=== PATIENT | female | born 1975 | race Caucasian/White ===

== ENCOUNTER 2022-10-29 06:56 | Day surgery (SDC) | payer OTHER, SELFPAY ==
[2022-09-03 10:24] VITALS: BMI 20.7
[2022-10-16 14:40] VITALS: BMI 20.3
--- NOTE | 2022-10-26 12:01 | PM.HPGS ---
History of Present Illness History of Present Illness Consent: Risks, benefits, and alternatives have been discussed and questions answered. Patient agrees to proceed with procedure. Chief complaint: Family History of Colon Cancer Narrative: Irlanda Oconnell is a 47 year old female who was referred for colon cancer screening Review of Systems Review of Systems: All systems reviewed & are unremarkable except as noted in HPI and below PMFSH Social History Social History Smoking status: Never smoker Alcohol intake: current Drinks per week: 1 Substance use: never Substance use type: does not use Living arrangements: with family Spiritual care concerns: No Meds Home Medications and Allergies Home Medications Medication Instructions Recorded Confirmed Type No Home Medications 10/16/22 10/29/22 History Allergies Allergy/AdvReac Type Severity Reaction Status Date / Time No Known Allergies Allergy Verified 10/29/22 07:58 Exam Const: General: alert Orientation/consciousness: patient oriented x3 Resp: Auscultation: clear to auscultation bilaterally Cardio: Rate: regular rate Rhythm: regular rhythm GI: GI Palp: Yes Soft to palpation and No Tenderness to palpation present (GI) Neuro: General: patient oriented x3 Assessment and Plan Assessment and plan (1) Colon cancer screening: Code(s): Z12.11 - Encounter for screening for malignant neoplasm of colon Status: Acute Assessment and Plan: Colonoscopy with possible biopsy or polypectomy or cautery or injection of substances.
[2022-10-29 07:50] VITALS: BP 112/74; PULSE 90; RESP 20; TEMP 36.6; O2SAT 100
[2022-10-29] MEDS: LACTATED RINGERS 1,000 ML 150 ML IV CONT (08:01)
--- NOTE | 2022-10-29 08:35 | WPDANESEPPF ---
Anes - Initial Pre Proc Eval Procedure: Operation Date: 10/29/22 09:00 Proposed Procedures p Screening Colonoscopy - Kevyn Harris MD Date/Time: 10/29/22 08:35 Surgeon: Kevyn Harris MD Pre Op Diagnosis: Family History of Colon Cancer Patient Data Age: 47 Gender: F Height: 1.7 m Weight: 60 kg Last Vital Signs Temp 36.6 C 10/29/22 07:50 Pulse 90 10/29/22 07:50 Resp 20 10/29/22 07:50 BP 112/74 10/29/22 07:50 Pulse Ox 100 10/29/22 07:50 O2 Del Method Room Air 10/29/22 07:50 Allergies Allergy/AdvReac Type Severity Reaction Status Date / Time No Known Allergies Allergy Verified 10/29/22 07:58 Home Medications Medication Instructions Recorded Confirmed Type No Home Medications 10/16/22 10/29/22 History Patient hx anesthesia problems: none Family hx anesthesia problems: post op nausea/vomiting Results Review: All pre-operative results and documents have been reviewed as part of the pre-operative evaluation. [facility] Social History Social History Smoking status: Never smoker Alcohol intake: current Drinks per week: 1 Substance use: never Substance use type: does not use Living arrangements: with family Spiritual care concerns: No Anes - Eval Final PreProcedure Day of Procedure 10/29/22 08:35 Patient weight: normal Heart: regular rate and rhythm Lungs: clear to auscultation Airway: Mallampati scale class II Neurological: alert and oriented Last oral intake: >/= 8 hours ASA classification: I Emergent: no Anesthetic plan: proceed Anesthesia type and monitoring: general GIVS and standard monitoring Results Review: All pre-operative results and documents have been reviewed as part of the pre-operative evaluation. Informed Consent: The patient's anesthetic plan and its attendant risks and benefits were discussed with the patient/family/POA. Questions were solicited and answers provided to the satisfaction of the patient/family/POA.
[2022-10-29 09:17] VITALS: BP 101/65; PULSE 82; RESP 16; O2SAT 98
[2022-10-29 09:27] VITALS: BP 110/73; PULSE 65; RESP 16; O2SAT 100
[2022-10-29 09:37] VITALS: BP 108/75; PULSE 62; RESP 18; O2SAT 100
--- NOTE | 2022-10-29 12:24 | WPDANESPN ---
Anes - Prog Note Post-Op Date/Time: 10/29/22 12:24 Cardiovascular status: normal Respiratory status: normal Airway patency: baseline Mental status: baseline Post-Op hydration status: normal Vital Signs: Last Vital Signs Temp 36.6 C 10/29/22 07:50 Pulse 62 10/29/22 09:37 Resp 18 10/29/22 09:37 BP 108/75 10/29/22 09:37 Pulse Ox 100 10/29/22 09:37 O2 Del Method Room Air 10/29/22 09:37 Pain Score (VAS): 0 I/O: Intake & Output 10/28/22 10/29/22 10/29/22 23:59 07:59 15:59 Intake Total 650 Balance 650 Patient Feedback: Patient satisfied with anesthetic care.
== END 2022-10-29 09:52 | disposition home or self-care (01) ==
PROVIDERS: PCP Nurse Practitioner Family; Visit Provider Internal Medicine Gastroenterology
PROC: 0DJD8ZZ Inspection of Lower Intestinal Tract, Via Natural or Artificial Opening Endoscopic (ICD-10-PCS; CPT 45378; principal; 2022-10-29 09:00)
DX: Z12.11 Encounter for screening for malignant neoplasm of colon (principal)
CPT/HCPCS: 45378